=== PATIENT | male | born 1990 | race Caucasian/White ===

== ENCOUNTER 2017-01-18 01:50 | Emergency (ER) | payer OTHER ==
[2017-01-18 02:14] VITALS: BP 110/71; PULSE 81; RESP 16; O2SAT 98
[2017-01-18] MEDS ORDERED: KETOROLAC TROMETHAMINE 30 MG/ML SOL IM ONE (02:35)
[2017-01-18] MEDS ORDERED: KETOROLAC TROMETHAMINE 30 MG/ML SOL ONE (02:36)
[2017-01-18 02:40] VITALS: TEMP 97.9
[2017-01-18 02:50] LABS: BASOPHILS % (AUTO) 0 % (0-3); EOSINOPHILS % (AUTO) 0 % (0-9); HEMATOCRIT 38 % (39-53); MEAN CORPUSCULAR HGB CONC 36.2 gm/dl (32.0-36.0); MEAN CORPUSCULAR VOLUME 83 fL (80-100); NEUTROPHILS % (AUTO) 57.6 % (37-80)
== END 2017-01-18 03:14 | disposition home or self-care (01) | DRG 153 ==
LOC: ED 01:50
DX: J11.1 Influenza due to unidentified influenza virus with other respiratory manifestations (principal)
CPT/HCPCS: 36415; 85025; 96372; 99283; J1885